=== PATIENT | female | born 1990 | race African-American/Black ===

== ENCOUNTER → 2019-05-27 | Outpatient (CLI) | payer OTHER ==
--- NOTE | 2019-05-27 18:33 | REP ---
Focused left breast sonography: History: Left breast mass. No comparison breast imaging. Findings: Scanning is performed through the lateral left breast which is tender. Heterogeneous fibroglandular background echotexture is seen. There is an intramammary lymph node measuring 0.7 x 0.5 x 0.6 cm in the 2 o'clock position. Hypoechoic cortex surrounds hyperechoic hilar tissue in this lymph node. It has a benign appearance. No cyst or soft tissue mass is appreciated. Impression: BIRADS category III probably benign findings. 7 mm intramammary lymph node noted in the left breast at approximately 2 o'clock position upper outer quadrant. 6-month follow up sonography suggested. Electronically Signed by Cheel Hannah MD 05/28/2019 08:09 A
== END ==
LOC: M RAD 13:51
PROVIDERS: ATTEND Nurse Practitioner Family
DX: N63.20 Unspecified lump in the left breast, unspecified quadrant (principal)

== ENCOUNTER → 2019-08-14 | Outpatient (REF) | payer OTHER ==
[2019-08-14 14:21] LABS: HEMATOCRIT 38.7 % (36.0-47.0); HEMOGLOBIN 13.2 g/dl (12.0-15.5); MEAN CORPUSCULAR HGB CONC 34.1 g/dl (32.0-36.5); PLATELET COUNT, AUTOMATED 171 10^3/uL (150-450); WHITE BLOOD COUNT 10.5 10^3/uL (4.0-10.0)
[2019-08-14 14:27] LABS: ALT/SGPT 16 U/L (12-78); BILIRUBIN,TOTAL 0.5 MG/DL (0.2-1.0); CREATININE FOR GFR 0.75 MG/DL (0.55-1.30); GLOMERULAR FILTRATION RATE > 60.0 (>60); LDH LACTATE DEHYDROGENASE 135 U/L (84-246); URIC ACID 4.7 MG/DL (2.6-6.0)
[2019-08-14 14:40] LABS: CREATININE,RANDOM URINE 16.6 MG/DL; TOTAL PROTEIN,RANDOM URINE 9.3 MG/DL (0.0-12.0)
[2019-08-14 15:48] LABS: CHLAMYDIA DNA AMPLIFICATION NEGATIVE (NEGATIVE); GC DNA AMPLIFICATION NEGATIVE (NEGATIVE)
[2019-08-15 08:40] LABS: RUBELLA IgG QUALITATIVE IMMUNE (IMMUNE)
[2019-08-15 08:41] LABS: HEPATITIS B SURFACE ANTIGEN NEGATIVE (NEGATIVE)
[2019-08-15 09:08] LABS: HEPATITIS C VIRUS ABY INDEX 0.1 INDEX (<0.8)
[2019-08-15 09:09] LABS: HIV 1&2 SCREEN CENTAUR NEGATIVE (NEGATIVE)
== END ==
LOC: M PLALAB 10:33
PROVIDERS: ATTEND Advanced Practice Midwife
DX: Z34.81 Encounter for supervision of other normal pregnancy, first trimester (principal); Z3A.08 8 weeks gestation of pregnancy

== ENCOUNTER → 2019-11-06 | Outpatient (CLI) | payer OTHER ==
--- NOTE | 2019-11-06 10:02 | REP ---
OB ULTRASOUND: Real-time sonographic evaluation of the gravid uterus is performed. There is a single living intrauterine gestation. The estimated gestational age is 20 weeks 0 days EDC 03/25/2020. Today's measurements indicate appropriate growth. Biometry and Growth: BPD 45 mm = 19 weeks 4 days, 37th percentile HC 167 mm = 19 weeks 2 days, 30th percentile AC 146 mm = 20 weeks 0 days, 49th percentile FL 30 mm = 19 weeks 2 days, 32nd percentile HC/AC ratio 1.14 within normal range 1.06 to 1.24. Estimated weight 302 grams 34th percentile. SEEN/GROSSLY UNREMARKABLE Lateral ventricles Yes Posterior fossa Yes Upper lip Yes Four-chamber heart Yes LVOT Yes RVOT Yes Stomach Yes Cord insertion Yes Three vessel cord Yes. Single umbilical artery noted. Kidneys Yes Bladder Yes Spine Yes Cervical length: Closed and measures 4.6 cm in length. heart rate: 147 beats per minute. position: Variable. Placenta: Posterior and grade 1 with no previa or abruption. Amniotic fluid: Within normal limits.
== END ==
LOC: M WHC 07:49
PROVIDERS: ATTEND Advanced Practice Midwife
DX: Z36.89 Encounter for other specified antenatal screening (principal); Z3A.20 20 weeks gestation of pregnancy
CPT/HCPCS: 76811; G0463

== ENCOUNTER → 2019-12-04 | Outpatient (CLI) | payer OTHER ==
--- NOTE | 2019-12-04 10:42 | REP ---
Clinical: Anatomical evaluation. Comparison: 11/06/2019 . Findings: Examination demonstrates a single live intrauterine in the cephalic presentation. motion is identified by technologist. Placenta is noted posterior and grade I without evidence for placenta previa or abruption. Amniotic fluid volume is normal. Cervix measures 4.9 cm in length and appears closed. No evidence for nuchal cord. Gestational age by LMP 24 weeks 0 days with JAE 03/25/2020 . Gestational age by current measurements 23 weeks 4 days with JAE 03/28/2020 . FHR equals 147 beats per minute. Estimated weight 674 grams ( 51st percentile). Anatomical assessment demonstrates normal structures including cranium, facial features, lungs, four-chamber heart/left ventricular outflow tract, diaphragm, stomach, cord insertion, kidneys/bladder. Impression: Single live intrauterine in cephalic presentation demonstrating appropriate interval growth. A single umbilical artery again noted. No gross anatomical abnormalities are otherwise identified. Electronically Signed by Jeremy Garcia MD 12/04/2019 10:33 A
== END ==
LOC: M WHC 09:51
PROVIDERS: ATTEND Advanced Practice Midwife
DX: Z34.82 Encounter for supervision of other normal pregnancy, second trimester (principal); Z3A.24 24 weeks gestation of pregnancy

== ENCOUNTER → 2020-01-01 | Outpatient (CLI) | payer OTHER ==
[2020-01-01 15:45] LABS: HEMATOCRIT 33.1 % (36.0-47.0); MEAN CORPUSCULAR HEMOGLOBIN 31.1 pg (27.0-33.0); MEAN CORPUSCULAR HGB CONC 33.2 g/dl (32.0-36.5); MEAN CORPUSCULAR VOLUME 93.5 fl (80.0-96.0); PLATELET COUNT, AUTOMATED 128 10^3/uL (150-450); RED BLOOD COUNT 3.54 10^6/uL (4.00-5.40)
== END ==
LOC: M PLALAB 09:03
PROVIDERS: ATTEND Advanced Practice Midwife
DX: Z34.82 Encounter for supervision of other normal pregnancy, second trimester (principal); Z3A.00 Weeks of gestation of pregnancy not specified
CPT/HCPCS: 36415; 82950; 85027; 86850; 86870; 86900; 86901; G0463

== ENCOUNTER → 2020-02-19 | Outpatient (CLI) | payer OTHER ==
--- NOTE | 2020-02-24 07:53 | REP ---
OB ULTRASOUND HISTORY: Evaluate growth, estimated weight. TECHNIQUE: Real-time sonographic evaluation of the gravid uterus is performed. FINDINGS: There is a single living intrauterine gestation. The estimated gestational age is reportedly 35 weeks 0 days, estimated date of confinement (EDC) 03/25/2020. Todays measurements indicate appropriate growth. BIOMETRY AND GROWTH: BPD 87 mm 34 weeks 6 days 49th percentile HC 312 mm 34 weeks 6 days 40th percentile AC 310 mm 34 weeks 6 days 48th percentile Femur length 56 mm 33 weeks 6 days 33rd percentile AC/HC ratio 1.01 Normal 0.93 to 1.12 Estimated weight 2474 g 36th percentile position is cephalic. Placenta is anterior and grade 2 with no previa or abruption. Two-vessel umbilical cord is noted. heart rate is 120 beats per minute. Amniotic fluid appears within normal limits. Amniotic fluid index (ELIZ) 12.6 within normal range of 7.9 to 24.9. Cervix is closed and measures 3.4 cm in length. MTDD
== END ==
LOC: M WHC 13:22
PROVIDERS: ATTEND Advanced Practice Midwife
DX: O09.893 Supervision of other high risk pregnancies, third trimester (principal); Z3A.35 35 weeks gestation of pregnancy

== ENCOUNTER → 2020-02-26 | Outpatient (REF) | payer OTHER ==
[2020-02-26 16:00] LABS: BASO % 0.2 % (0.0-1.0); EOS % 0.4 % (0.0-3.0); HEMATOCRIT 37.4 % (36.0-47.0); HEMOGLOBIN 12.2 g/dl (12.0-15.5); LYMPH % 20.3 % (24.0-44.0); MEAN CORPUSCULAR HEMOGLOBIN 29.7 pg (27.0-33.0); MEAN CORPUSCULAR HGB CONC 32.6 g/dl (32.0-36.5); MONO % 9.9 % (0.0-5.0); NEUTROPHILS # 6.6 10^3/uL (1.5-8.5); NEUTROPHILS % 68.1 % (36.0-66.0); PLATELET COUNT, AUTOMATED 123 10^3/uL (150-450); RED BLOOD COUNT 4.11 10^6/uL (4.00-5.40); WHITE BLOOD COUNT 9.7 10^3/uL (4.0-10.0)
== END ==
LOC: M PLALAB 13:00
PROVIDERS: ATTEND Advanced Practice Midwife
DX: Z34.83 Encounter for supervision of other normal pregnancy, third trimester (principal)

== ENCOUNTER 2020-03-28 07:09 | Inpatient (IN) | payer OTHER ==
[~2020-03-28] VITALS: Ht 152.4 cm; Wt 66.3 kg
[2020-03-28] VITALS (9 sets, daily range): BP systolic 104–139; BP diastolic 54–66
[2020-03-28] MEDS ORDERED: MULTTAB20 PO (07:26)
[2020-03-28] MEDS ORDERED: LR 1,000 ML IV SCH (07:56)
[2020-03-28] MEDS ORDERED: LACTATED RINGER'S 1000 ML IV STA (07:56)
--- NOTE | 2020-03-28 08:51 | HPEPDOC ---
Obstetrical History & Physical General Date of Admission Mar 28, 2020 at 07:37 History of Present Illness Piyush is a 29yo with SIUP at 40w3d by lmp c/w 7wk u/s presenting with pa inful consistent ctx since 0500 this morning. No LOF, no VB, good movement. No fevers/chills. 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), 2 vessel cord (had growth scans, last one 02/11 was 36%ile), thrombocytopenia at 28wk (plt on 02/25 = 123) Past Medical History Past Obstetrical History : Past Obstetrical History: Multigravida (2008 uncomplicated at 38wk M 6lb2oz, 2011 uncomplicated at 40wk F 7lb5oz, 2017 uncomplicated 40wk M 8lb5oz pre-E end of with platelet transfusion) [employer] REPA[employer]ER History: No pertinent history Past Medical History Medical History Benign Surgical History: Hernia repair (umbilical ) Family History Significant Family History: No pertinent family hx Social History Marital Status: Family situation: Spouse/partner home Psychosocial History: No pertinent psych hx * Smoker: non-smoker Alcohol: Denies Drugs: denies Imunizations Tdap status: current Allergies Coded Allergies: No Known Allergies (Unverified , 03/28/20) Medications Scheduled No122/Iron/Folic Acid ( Multi Tablet) 1 Each Tablet, 1 TAB PO DAILY Physical Examination Physical Examination GENERAL: Alert and oriented times three. ABDOMEN: Gravid and non-tender to touch. FETUS: Is vertex (VTX) by sterile vaginal examination (SVE) EXTREMITIES: No edema BLE Laboratory Data 24H LABS Laboratory Tests 2 03/28/20 07:41: Serology Scanned Report Hepatitis B Testing Pertinent Laboratoy Data Blood Type: O+ RBC Antibody Screen: Positive (anti-I) HIV: Negative Hepatitis B: Negative Hepatitis C: Negative Rapid Plasma Reagin: Nonreactive Rubella: Immune Chlamydia/Gonorrhea: Negative Group B Streptococcus: Negative Glucose Tolerance Test: 126 Anatomy Ultrasound Ultrasound Date: Feb 12, 2020 Placenta Location: Posterior Normal Anatomy: Yes Placenta Previa: No Steroid Therapy Steroid Therapy: No Vaginal Examination Dilation: 6 cm Effacement: 70% Station: -2 Cervical Consistency: Soft Cervical Position: Anterior Presentation: Cephalic presentation Assessment Heart Rate (FHR): 130 Variability: Moderate Accelerations: Positive Decelerations: None Tocometer Contractions: Yes Frequency: irregular, every 3-7 min. Duration: greater than 60 seconds Strength: palpated as moderate Assessment/Plan Assessment Piyush is a 29yo with SIUP at 40w3d by lmp c/w 7wk u/s in active labor with SCE 6/75/-2, ctx q4-6min. AROM performed after admission, clear fluid. Cat I FHRT. Vitals wnl, exam benign. 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 Government Relations Analyst and consent. Diet: clear liquids Group B Streptococcus (GBS) negative Labs and intravenous (IV) per unit protocol. Lactated Ringers (LR): Bolus 125 mL, then at 800 mL/hr. Anticipate normal spontaneous delivery () Safe to proceed MD Kevyn Dang Katrina D MD Mar 28, 2020 08:34
[2020-03-28] MEDS: PRENATAL VITAMINS CHEWABLE TABLET PO SCH (09:00)
[2020-03-28 09:13] LABS: HEMATOCRIT 41.2 % (36.0-47.0); HEMOGLOBIN 13.7 g/dl (12.0-15.5); MEAN CORPUSCULAR HEMOGLOBIN 29.3 pg (27.0-33.0); MEAN CORPUSCULAR HGB CONC 33.3 g/dl (32.0-36.5); PLATELET COUNT, AUTOMATED 113 10^3/uL (150-450); RED BLOOD COUNT 4.68 10^6/uL (4.00-5.40); WHITE BLOOD COUNT 11.9 10^3/uL (4.0-10.0)
[2020-03-28] MEDS ORDERED: OXYTOCIN 30 UNITS IN 0.9% NaCl 500ML IV BAG (J2590) As Ordered ONE (09:15)
--- NOTE | 2020-03-28 09:36 | IPNPDOC ---
Text Note Date of Service The patient was seen on 03/28/20. NOTE Pt feeling urge to push SCE /-2 Cat I FHRT patient has tried hands and knees, now using peanut ball will continue to closely observe safe to proceed Cata Bagley MD VS,Christine, I+O VS, Christine, I+O Laboratory Tests 03/28/20 08:48 Vital Signs Date Time Temp Pulse Resp B/P (MAP) Pulse Ox O2 Delivery O2 Flow Rate FiO2 03/28/20 08:38 97.3 03/28/20 08:37 87 139/58 (85) Cata Bagley MD Mar 28, 2020 09:36
[2020-03-28] MEDS ORDERED: OXYTOCIN DRIP 30 UNITS in IV 1 EA IV SCH (10:59)
[2020-03-28] MEDS ORDERED: ACETAMINOPHEN TAB 650MG DOSE (2X325MG) PO PRN (11:00)
[2020-03-28] MEDS ORDERED: KETOROLAC 30 MG/ML 1ML VIAL IV ONE (11:00)
[2020-03-28] MEDS ORDERED: IBUPROFEN 800 MG TAB PO PRN (11:00)
[2020-03-28] MEDS ORDERED: RHOGAM 300 MCG (1500 IU) INJ (J2790) IM SCH (11:00)
[2020-03-28] MEDS ORDERED: IBUPROFEN 600MG TAB PO PRN (11:00)
[2020-03-28] MEDS ORDERED: MEASLES,MUMPS,RUBELLA VACCINE INJ (MMR-II) (90707) SC SCH (11:00)
[2020-03-28] MEDS ORDERED: DOCUSATE SODIUM 100 MG CAP PO PRN (11:00)
[2020-03-28] MEDS ORDERED: DIBUCAINE 1% OINTMENT 30GM TOP PRN (11:00)
--- NOTE | 2020-03-28 13:25 | DNPDOC ---
[facility] Delivery Note Delivery Note DATE OF DELIVERY: 28 Mar 2020 PREDELIVERY DIAGNOSIS: 40w3d gestation and labor. POST DELIVERY DIAGNOSIS: Delivered. PROCEDURE: Spontaneous vaginal delivery BIOINFORMATICS ASSISTANT: Dr. Cata Bagley MD ANESTHESIA: none ESTIMATED BLOOD LOSS: 150 mL. FINDINGS: 7 pound 13 ounce (3540g) female , Score 9/9 DELIVERY SUMMARY: Piyush is a 29yo [id number] s/p uncomplicated after presenting in active labor at 40w3d, delivering at 1014 on 03/28/20. She was 4cm on presentation, had AROM with clear fluid noted and progressed on her own to anterior lip. She started to have some decels with unbearable urge to push, so I reduced the anterior lip as she pushed. Within two contractions, head delivered OA, restituted CHANDRA. Left anterior shoulder delivered followed by posterior shoulder and corpus. Infant cried before fully delivered, placed on maternal abdomen, apgars 9/9, vigorous. After approximately 2 minutes, cord clamped x2 and cut by FOB. Cord blood obtained for MBT O pos. With uterine massage and traction on the cord, placenta delivered spontaneously and intact with 3 vessel centrally inserted cord. IV pitocin given per protocol. More uterine massage performed with cessation of bleeding, EBL 150ml. Inspection of perineum and vagina revealed a small superficial nathaly at the vaginal outlet (1mll) repaired with two stitches using 4-0 vicryl suture, having excellent reapproximation and total hemostasis. All counts correct x2. Mom and infant were doing well when I left the room. MD Kevyn Dang Katrina D MD Mar 28, 2020 13:14
[2020-03-28] MEDS ORDERED: SLF 3 ML SYR IV PRN (14:30)
[2020-03-28] MEDS: ACETAMINOPHEN 500 MG TAB PO PRN (14:58)
[2020-03-28] MEDS ORDERED: KETOROLAC 30 MG/ML 1ML VIAL IV PRN (18:00)
[2020-03-28] MEDS: SLF 3 ML SYR IV SCH (22:35)
[2020-03-29] MEDS: SLF 3 ML SYR IV SCH ×3 (06:00→22:00)
[2020-03-29 06:01] VITALS: BP 112/61
[2020-03-29] MEDS: PRENATAL VITAMINS CHEWABLE TABLET PO SCH (07:43)
--- NOTE | 2020-03-29 08:01 | IPNPDOC ---
Progress Note Date of Service: Mar 29, 2020 Day#: 1 Progress Note SUBJECT: Piyush is a 29-year-old female who is now a who presented to L&D in active labor. She had an uncomplicated vaginal delivery. The did have a 2 vessel cord. She has been ambulating, voiding spontaneously without issue and tolerating regular diet. Breast feeding without issue. OBJECTIVE: VITAL SIGNS: Within normal limits, afebrile. Alert and oriented times three. Breath sounds clear to auscultation. Abdomen: Fundus firm at U. Soft, NTTP. Minimal lochia. ASSESSMENT: Day 1 PLAN: 1. Discharge to home today. 2. Tylenol and Motrin for pain. 3. Encourage breast feeding and ambulation. 4. Routine PP visit in 6 weeks in clinic. 5. Reviewed home precautions including mastitis, endometritis, depression, DVT signs, pelvic rest, pain management, and hemorrhage. VS, I&O, 24H, Fishbone Vital Signs/I&O Vital Signs Date Time Temp Pulse Resp B/P (MAP) Pulse Ox O2 Delivery O2 Flow Rate FiO2 03/29/20 06:01 98.1 75 18 112/61 (78) 99 Room Air I&O- Last 24 Hours up to 6 AM 03/29/20 06:00 Intake Total 900 ml Output Total 950 ml Balance -50 ml Laboratory Data 24H LABS Laboratory Tests 2 03/28/20 08:48: Nucleated Red Blood Cells % (auto) 0.0 CBC/BMP Laboratory Tests 03/28/20 08:48 TRICIA BALL CNM Mar 29, 2020 08:01
[2020-03-29] MEDS ORDERED: ACET-683 PO (08:02)
[2020-03-29] MEDS: ACETAMINOPHEN 500 MG TAB PO PRN (12:31)
[2020-03-29 18:00] VITALS: BP 127/60
[2020-03-30] MEDS: ACETAMINOPHEN 500 MG TAB PO PRN (05:14)
[2020-03-30 05:37] VITALS: BP 107/52
[2020-03-30] MEDS: SLF 3 ML SYR IV SCH (06:00)
--- NOTE | 2020-03-30 06:34 | IPNPDOC ---
Progress Note Date of Service: Mar 30, 2020 Day#: 2 Progress Note SUBJECT: Piyush is a 29-year-old female who is now a who presented to L&D in active labor. She had an uncomplicated vaginal delivery. The did have a 2 vessel cord. She has been ambulating, voiding spontaneously without issue and tolerating regular diet. Breast feeding without issue. OBJECTIVE: VITAL SIGNS: Within normal limits, afebrile. Alert and oriented times three. Breath sounds clear to auscultation. Abdomen: Fundus firm at U. Soft, NTTP. Minimal lochia. ASSESSMENT: Day 2 PLAN: 1. Discharge to home today. 2. Tylenol and Motrin for pain. 3. Encourage breast feeding and ambulation. 4. Routine PP visit in 6 weeks in clinic. 5. Reviewed home precautions including mastitis, endometritis, depression, DVT signs, pelvic rest, pain management, and hemorrhage. VS, I&O, 24H, Fishbone Vital Signs/I&O Vital Signs Date Time Temp Pulse Resp B/P (MAP) Pulse Ox O2 Delivery O2 Flow Rate FiO2 03/30/20 05:37 98.6 77 16 107/52 (70) 97 Room Air TRICIA BALL CNM Mar 30, 2020 06:34
[2020-03-30] MEDS: PRENATAL VITAMINS CHEWABLE TABLET PO SCH (07:51)
== END 2020-03-30 13:11 | disposition home or self-care (01) | DRG 806 ==
LOC: M LDO 07:09 → M LDI 07:37 → M OBS 14:10
PROVIDERS: ADMIT Obstetrics & Gynecology; ATTEND Obstetrics & Gynecology
PROC: 10E0XZZ Delivery of Products of Conception, External Approach (ICD-10-PCS; principal; 2020-03-28)
PROC: 10907ZC Drainage of Amniotic Fluid, Therapeutic from Products of Conception, Via Natural or Artificial Opening (ICD-10-PCS; 2020-03-28)
DX: O48.0 Post-term pregnancy (principal); Z37.0 Single live birth; O99.12 Other diseases of the blood and blood-forming organs and certain disorders involving the immune mechanism complicating childbirth; Z3A.40 40 weeks gestation of pregnancy; O76 Abnormality in fetal heart rate and rhythm complicating labor and delivery; D69.6 Thrombocytopenia, unspecified

== ENCOUNTER → 2020-07-19 | Outpatient (REF) | payer OTHER ==
[~2020-07-19] MED LIST: ACET-683 PO; MULTTAB20 PO
== END ==
LOC: M PLALAB 14:39
PROVIDERS: ATTEND Obstetrics & Gynecology
DX: Z12.4 Encounter for screening for malignant neoplasm of cervix (principal)
CPT/HCPCS: 87624; G0123

== ENCOUNTER 2021-05-08 04:00 | Emergency (ER) | payer OTHER ==
[~2021-05-08] VITALS: Ht 152.4 cm; Wt 56.4 kg
[2021-05-08] MEDS ORDERED: NS 1,000 ML IV ONE (07:20)
[2021-05-08] MEDS ORDERED: CYCLOBENZAPRINE 5MG TABLET PO ONE (07:30)
[2021-05-08 07:40] LABS: BASO % 0.2 % (0.0-1.0); EOS % 0.2 % (0.0-3.0); HEMATOCRIT 39.4 % (36.0-47.0); HEMOGLOBIN 13.4 g/dl (12.0-15.5); LYMPH # 2.4 10^3/uL (1.5-5.0); LYMPH % 17.9 % (24.0-44.0); MEAN CORPUSCULAR VOLUME 88.1 fl (80.0-96.0); MONO # 0.4 10^3/uL (0.0-0.8); NEUTROPHILS # 10.3 10^3/uL (1.5-8.5); NEUTROPHILS % 78.3 % (36.0-66.0); PLATELET COUNT, AUTOMATED 221 10^3/uL (150-450); RED BLOOD COUNT 4.47 10^6/uL (4.00-5.40); WHITE BLOOD COUNT 13.2 10^3/uL (4.0-10.0)
[2021-05-08 08:13] LABS: RSV AMPLIFICATION NEGATIVE (NEGATIVE)
[2021-05-08 08:42] LABS: BLOOD UREA NITROGEN 11 MG/DL (7-18); CALCIUM LEVEL 9.5 MG/DL (8.5-10.1); CARBON DIOXIDE LEVEL 22 MEQ/L (21-32); CHLORIDE LEVEL 108 MEQ/L (98-107); CREATININE FOR GFR 0.76 MG/DL (0.55-1.30); GLOMERULAR FILTRATION RATE > 60.0 (>60); GLUCOSE, FASTING 106 MG/DL (70-100); HCG, SERUM QUANTITATIVE 4119 MIU/ML; POTASSIUM SERUM 4.6 MEQ/L (3.5-5.1); SODIUM LEVEL 139 MEQ/L (136-145)
[2021-05-08] MEDS ORDERED: D5W/0.45% SODIUM CHLORIDE 1,000 ML IV ONE (11:10)
[2021-05-08 12:41] VITALS: BP 132/72
== END 2021-05-08 12:42 | disposition short-term general hospital (02) ==
LOC: M ED 04:00
DX: O9A.211 Injury, poisoning and certain other consequences of external causes complicating pregnancy, first trimester (principal); O26.891 Other specified pregnancy related conditions, first trimester; M51.27 Other intervertebral disc displacement, lumbosacral region; R20.2 Paresthesia of skin; R53.1 Weakness; Z3A.01 Less than 8 weeks gestation of pregnancy

== ENCOUNTER → 2021-06-06 | Outpatient (CLI) | payer OTHER | LOC: M WHC 13:53 | PROVIDERS: ATTEND Obstetrics & Gynecology | DX: Z36.2 Encounter for other antenatal screening follow-up (principal); Z3A.09 9 weeks gestation of pregnancy ==

== ENCOUNTER → 2021-06-06 | Outpatient (CLI) | payer OTHER ==
[2021-06-06 17:31] LABS: BASO % 0.3 % (0.0-1.0); EOS # 0.1 10^3/uL (0.0-0.5); EOS % 0.5 % (0.0-3.0); HEMATOCRIT 39.7 % (36.0-47.0); HEMOGLOBIN 13.5 g/dl (12.0-15.5); LYMPH # 2.6 10^3/uL (1.5-5.0); LYMPH % 22.7 % (24.0-44.0); MEAN CORPUSCULAR HEMOGLOBIN 29.7 pg (27.0-33.0); MEAN CORPUSCULAR VOLUME 87.4 fl (80.0-96.0); MONO # 0.7 10^3/uL (0.0-0.8); NEUTROPHILS # 8.1 10^3/uL (1.5-8.5); NEUTROPHILS % 70.2 % (36.0-66.0); PLATELET COUNT, AUTOMATED 202 10^3/uL (150-450); RED BLOOD COUNT 4.54 10^6/uL (4.00-5.40); WHITE BLOOD COUNT 11.6 10^3/uL (4.0-10.0)
[2021-06-06 17:42] LABS: CREATININE,RANDOM URINE 16.8 MG/DL; TOTAL PROTEIN,RANDOM URINE 5.5 MG/DL (0.0-12.0)
[2021-06-06 17:47] LABS: ALT/SGPT 15 U/L (12-78); BILIRUBIN,TOTAL 0.3 MG/DL (0.2-1.0); BLOOD UREA NITROGEN 7 MG/DL (7-18); CALCIUM LEVEL 9.6 MG/DL (8.5-10.1); CARBON DIOXIDE LEVEL 25 MEQ/L (21-32); CHLORIDE LEVEL 106 MEQ/L (98-107); CREATININE FOR GFR 0.71 MG/DL (0.55-1.30); GLOMERULAR FILTRATION RATE > 60.0 (>60); GLUCOSE, FASTING 85 MG/DL (70-100); SODIUM LEVEL 138 MEQ/L (136-145); TOTAL PROTEIN 7.6 GM/DL (6.4-8.2)
[2021-06-06 18:35] LABS: HEPATITIS C VIRUS ABY INDEX < 0.0 INDEX (<0.8); HIV 1&2 SCREEN CENTAUR NEGATIVE (NEGATIVE)
[2021-06-06 19:01] LABS: GC DNA AMPLIFICATION NEGATIVE (NEGATIVE)
== END ==
LOC: M PLALAB 13:34
PROVIDERS: ATTEND Obstetrics & Gynecology
DX: Z34.81 Encounter for supervision of other normal pregnancy, first trimester (principal); Z3A.09 9 weeks gestation of pregnancy

== ENCOUNTER → 2021-08-24 | Outpatient (CLI) | payer OTHER | LOC: M WHC 10:04 | PROVIDERS: ATTEND Obstetrics & Gynecology | DX: Z34.92 Encounter for supervision of normal pregnancy, unspecified, second trimester (principal) ==

== ENCOUNTER → 2021-09-30 | Outpatient (CLI) | payer OTHER ==
[2021-09-30 13:32] LABS: HEMOGLOBIN 13.4 g/dl (12.0-15.5); MEAN CORPUSCULAR HEMOGLOBIN 31.4 pg (27.0-33.0); MEAN CORPUSCULAR HGB CONC 34.4 g/dl (32.0-36.5); MEAN CORPUSCULAR VOLUME 91.3 fl (80.0-96.0); PLATELET COUNT, AUTOMATED 153 10^3/uL (150-450); RED BLOOD COUNT 4.27 10^6/uL (4.00-5.40); WHITE BLOOD COUNT 12.2 10^3/uL (4.0-10.0)
[2021-09-30 15:37] LABS: GC DNA AMPLIFICATION NEGATIVE (NEGATIVE)
== END ==
LOC: M PLALAB 09:54
PROVIDERS: ATTEND Specialist
DX: Z34.82 Encounter for supervision of other normal pregnancy, second trimester (principal); Z3A.00 Weeks of gestation of pregnancy not specified

== ENCOUNTER → 2021-10-19 | Outpatient (CLI) | payer OTHER | LOC: M LAB 08:09 | PROVIDERS: ATTEND Specialist | DX: Z34.82 Encounter for supervision of other normal pregnancy, second trimester (principal) ==

== ENCOUNTER → 2021-11-18 | Outpatient (CLI) | payer OTHER | LOC: M PLALAB 10:23 | PROVIDERS: ATTEND Advanced Practice Midwife | DX: O36.1930 Maternal care for other isoimmunization, third trimester, not applicable or unspecified (principal) ==

== ENCOUNTER → 2021-12-15 | Outpatient (REF) | payer OTHER | LOC: M SFHCWAGY 13:04 | PROVIDERS: ATTEND Advanced Practice Midwife | DX: O09.293 Supervision of pregnancy with other poor reproductive or obstetric history, third trimester (principal) ==

== ENCOUNTER → 2021-12-20 | Outpatient (CLI) | payer OTHER | LOC: M WHC 10:05 | PROVIDERS: ATTEND Advanced Practice Midwife | DX: O24.410 Gestational diabetes mellitus in pregnancy, diet controlled (principal) ==

== ENCOUNTER 2022-01-04 15:37 | Outpatient (CLI) | payer OTHER ==
[~2022-01-04] VITALS: Ht 152.4 cm; Wt 64.3 kg
[2022-01-04 16:04] VITALS: BP 121/85
[2022-01-04] MEDS ORDERED: HOME MED LIST COMPLETE! XX SCH (16:30)
[2022-01-04 16:56] VITALS: BP 134/61
[2022-01-04 18:27] VITALS: BP 123/60
== END 2022-01-04 18:46 | disposition home or self-care (01) ==
LOC: M LDO 15:37
PROVIDERS: ATTEND Advanced Practice Midwife
DX: O60.03 Preterm labor without delivery, third trimester (principal); O24.410 Gestational diabetes mellitus in pregnancy, diet controlled; Z3A.39 39 weeks gestation of pregnancy

== ENCOUNTER 2022-01-04 21:33 | Inpatient (IN) | payer OTHER ==
[~2022-01-04] VITALS: Ht 152.4 cm; Wt 64.3 kg
[2022-01-04 21:38] VITALS: BP 139/83
[2022-01-04] MEDS ORDERED: OXYTOCIN 30 UNITS IN 0.9% NaCl 500ML IV BAG (J2590) As Ordered ONE (21:40)
[2022-01-04 22:06] VITALS: BP 135/96
[2022-01-04] MEDS ORDERED: OXYTOCIN DRIP 30 UNITS in IV 1 EA IV PRN (22:20)
[2022-01-04] MEDS ORDERED: CARBOPROST TROMETHAMINE 250 MCG/ML AMP IM PRN (22:20)
[2022-01-04] MEDS ORDERED: OXYTOCIN INJ 10 UNITS/ML VIAL (J2590) IM PRN (22:20)
[2022-01-04] MEDS ORDERED: METHYLERGONOVINE MALEATE 0.2 MG/ML VIAL (J2210) IM PRN (22:20)
[2022-01-04] MEDS ORDERED: TRANEXAMIC ACID INJection 1,000 MG in NS 100 ML IV PRN (22:20)
[2022-01-04 22:21] VITALS: BP 135/66
[2022-01-04] MEDS ORDERED: HOME MED LIST COMPLETE! XX SCH (22:30)
[2022-01-04 22:32] LABS: HEMATOCRIT 41.9 % (36.0-47.0); HEMOGLOBIN 14.5 g/dl (12.0-15.5); MEAN CORPUSCULAR HEMOGLOBIN 30.2 pg (27.0-33.0); MEAN CORPUSCULAR HGB CONC 34.6 g/dl (32.0-36.5); MEAN CORPUSCULAR VOLUME 87.3 fl (80.0-96.0); PLATELET COUNT, AUTOMATED 104 10^3/uL (150-450); WHITE BLOOD COUNT 14.4 10^3/uL (4.0-10.0)
[2022-01-04 22:36] VITALS: BP 126/57
[2022-01-04 22:51] VITALS: BP 121/60
[2022-01-04] MEDS ORDERED: RHOGAM 300 MCG (1500 IU) INJ (J2790) IM SCH (23:00)
[2022-01-04] MEDS ORDERED: ACETAMINOPHEN TAB 650MG DOSE (2X325MG) PO PRN (23:00)
[2022-01-04] MEDS ORDERED: IBUPROFEN 600MG TAB PO PRN (23:00)
[2022-01-04] MEDS ORDERED: ONDANSETRON 4MG 2ML VIAL IV PRN (23:00)
[2022-01-04] MEDS ORDERED: ANUSOL HC CREAM 30GM TOP PRN (23:00)
[2022-01-04] MEDS ORDERED: DIBUCAINE 1% OINTMENT 30GM TOP PRN (23:00)
[2022-01-04] MEDS ORDERED: ACETAMINOPHEN 500 MG TAB PO PRN (23:00)
[2022-01-04] MEDS ORDERED: DOCUSATE SODIUM 100MG CAPSULE PO PRN (23:00)
[2022-01-04] MEDS ORDERED: MOM 30ML SUSPENSION UDC PO PRN (23:00)
[2022-01-05 00:32] VITALS: BP 122/59
[2022-01-05] MEDS: IBUPROFEN 800 MG TAB PO PRN ×3 (02:55→21:27)
[2022-01-05 06:14] VITALS: BP 104/60
[2022-01-05] MEDS: PRENATAL VITAMINS CHEWABLE TABLET PO SCH (11:50)
[2022-01-05 17:37] VITALS: BP 104/58
[2022-01-06 05:42] VITALS: BP 105/62
[2022-01-06] MEDS ORDERED: MEASLES,MUMPS,RUBELLA VACCINE INJ (MMR-II) (90707) SC.IMMUN ONE (09:00)
[2022-01-06] MEDS: PRENATAL VITAMINS CHEWABLE TABLET PO SCH (09:12)
[2022-01-06] MEDS ORDERED: ACET-683 PO (09:32)
[2022-01-06] MEDS ORDERED: IBUP80TA PO (09:32)
== END 2022-01-06 10:42 | disposition home or self-care (01) | DRG 807 ==
LOC: M LDO 21:33 → M LDI 21:49 → M OBS 23:31
PROVIDERS: ADMIT Advanced Practice Midwife; ATTEND Advanced Practice Midwife
PROC: 10E0XZZ Delivery of Products of Conception, External Approach (ICD-10-PCS; principal; 2022-01-04)
PROC: 10907ZC Drainage of Amniotic Fluid, Therapeutic from Products of Conception, Via Natural or Artificial Opening (ICD-10-PCS; 2022-01-04)
DX: O24.420 Gestational diabetes mellitus in childbirth, diet controlled (principal); Z37.0 Single live birth; Z3A.39 39 weeks gestation of pregnancy